=== PATIENT | female | born 1975 | race Two or more races ===

== ENCOUNTER 2020-01-24 18:13 | Inpatient (IN) | payer MEDICAID ==
[~2020-01-24] VITALS: Ht 157.5 cm; Wt 81.0 kg
[2020-01-24 18:57] LABS: Basophils # (auto) 0.1 10 ^3/uL (0-0.2); Eosinophils # (auto) 0.1 10 ^3/uL (0-0.8); Lymphocytes # (auto) 1.2 10 ^3/uL (0.4-5.4); Mean Corpuscular Hgb Conc. 32.2 g/dL (32.0-36.0); Monocytes # (auto) 1.5 10 ^3/uL (0-1.3); Nucleated Red Blood Cells % 0.1 %; White Blood Cell 12.4 10^3/uL (4.4-10.8)
[2020-01-24 18:58] LABS: Basophils % (auto) 0.6 % (0.0-2.0); Eosinophils % (auto) 0.9 % (0.0-7.0); Hematocrit 29.7 % (36.0-46.0); Hemoglobin 9.6 g/dL (12.2-16.2); Lymphocytes % (auto) 9.4 % (10.0-50.0); Mean Corpuscular Hemoglobin 23.8 pg (28.0-32.0); Mean Corpuscular Volume 73.8 fL (80.0-100.0); Neutrophils # (auto) 9.6 10 ^3/uL (1.6-8.6); Neutrophils % (auto) 77.1 % (37.0-80.0); Platelet Count (auto) 277 10^3/uL (140-450); Red Blood Cells 4.03 10^6/uL (4.0-5.20); Red Cell Distribution Width 17.4 % (11.8-14.3)
[2020-01-24 19:00] LABS: Urine Amorphous Crystal FEW /hpf (None Seen); Urine Bacteria NONE SEEN /hpf (None Seen); Urine Blood 2+ /uL (Negative); Urine Mucus FEW (None Seen); Urine Specific Gravity 1.019 (1.001-1.035); Urine WBC 82 /hpf (0 - 5); Urine WBC Clumps PRESENT /hpf (None Seen)
[2020-01-24 19:10] LABS: Albumin 2.3 g/dL (3.4-5.0); BUN/Creatinine Ratio 11.3; Calcium 7.8 mg/dL (8.5-10.1)
[2020-01-24 19:15] LABS: Bilirubin, Total 0.4 mg/dL (0.2-1.0); Total Protein 7.3 g/dL (6.4-8.2)
[2020-01-24 20:01] LABS: Potassium 2.7 mmol/L (3.5-5.1)
[2020-01-24] MEDS ORDERED: POTASSIUM EFFERVESENT TAB 25 MEQ PO ONE ×2 (21:00)
[2020-01-24] MEDS ORDERED: PANTOPRAZOLE 40 MG/10 ML VIAL INJ IV ONE (21:15)
[2020-01-24] MEDS ORDERED: SODIUM CHLORIDE 0.9% 1,000 ML IV ONE (21:15)
[2020-01-24] MEDS ORDERED: cefTRIAXone 1GM/50ML D5W 50 ML IV ONE (21:15)
[2020-01-24] MEDS ORDERED: ONDANSETRON HCL 4 MG/2 ML VIAL IV ONE (21:15)
[2020-01-24] MEDS ORDERED: HYDROcodone-ACET 5/325MG TAB PO ONE (21:30)
[2020-01-24] MEDS ORDERED: CIPROFLOXACIN 400MG/200ML 200 ML IV ONE (21:30)
[2020-01-24] MEDS ORDERED: MORPHINE SULF INJ 2 MG/ML SYRINGE 1ML IV ONE (22:00)
[2020-01-24 23:20] LABS: Amphetamine Screen, Urine POSITIVE (NEGATIVE); Barbiturate Scree,Urine NEGATIVE (NEGATIVE); Benzodiazephine Screen, Urine NEGATIVE (NEGATIVE); Cannabinoid Screen, Urine NEGATIVE (NEGATIVE); Cocaine Screen, Urine NEGATIVE (NEGATIVE); Opiate Scree,Urine NEGATIVE (NEGATIVE); Phencyclidine Screen, Urine NEGATIVE (NEGATIVE)
[2020-01-24 23:25] LABS: Alcohol, Urine < 3.0 mg/dL (0-10)
[2020-01-25 00:15] LABS: Alanine Aminotransferase 13 U/L (13-56); Albumin 1.8 g/dL (3.4-5.0); Anion Gap 7 (5-15); Aspartate Aminotransferase 12 U/L (15-37); BUN/Creatinine Ratio 11.3; Blood Urea Nitrogen 17 mg/dL (7-18); Calcium 7.1 mg/dL (8.5-10.1); Carbon Dioxide 24 mmol/L (21-32); Chloride 103 mmol/L (98-107); GFR African American 49 mL/min; GFR Non-African American 40 mL/min; Glucose 107 mg/dL (74-106); Potassium 3.4 mmol/L (3.5-5.1); Sodium 134 mmol/L (136-145)
[2020-01-25] MEDS ORDERED: ONDANSETRON HCL 4 MG/2 ML VIAL IV PRN (00:15)
[2020-01-25] MEDS ORDERED: HYDROcodone-ACET 5/325MG TAB PO PRN (00:15)
[2020-01-25] MEDS ORDERED: TEMAZEPAM 15 MG CAP PO PRN (00:15)
[2020-01-25] MEDS ORDERED: ACETAMINOPHEN 325 MG TAB PO PRN (00:15)
[2020-01-25 00:20] LABS: Alkaline Phosphatase 160 U/L (45-117); Bilirubin, Total 0.3 mg/dL (0.2-1.0)
[2020-01-25 04:54] VITALS: BP 94/51
[2020-01-25 09:00] VITALS: BP 94/57
[2020-01-25] MEDS: FAMOTIDINE 20 MG TAB PO SCH ×2 (09:24→22:02)
[2020-01-25] MEDS: cefTRIAXone 1GM/50ML D5W 50 ML IV SCH (09:25)
[2020-01-25 12:32] LABS: BUN/Creatinine Ratio 11.5; Calcium 7.9 mg/dL (8.5-10.1); Potassium 3.4 mmol/L (3.5-5.1)
[2020-01-25 13:00] VITALS: BP 105/61
[2020-01-25 17:00] VITALS: BP 123/73
--- NOTE | 2020-01-25 17:53 | NUR ---
FEVER TEMP 100.9, WILL GIVE TYLENOL ORDERED.
[2020-01-25 21:30] VITALS: BP 131/70
[2020-01-26 04:57] VITALS: BP 143/69
[2020-01-26 06:19] LABS: Hematocrit 26.3 % (36.0-46.0); Hemoglobin 8.8 g/dL (12.2-16.2); Mean Corpuscular Hemoglobin 24.6 pg (28.0-32.0); Mean Corpuscular Hgb Conc. 33.3 g/dL (32.0-36.0); Mean Corpuscular Volume 73.8 fL (80.0-100.0); Platelet Count (auto) 267 10^3/uL (140-450); Red Blood Cells 3.56 10^6/uL (4.0-5.20); Red Cell Distribution Width 17.5 % (11.8-14.3); White Blood Cell 8.3 10^3/uL (4.4-10.8)
[2020-01-26 06:23] LABS: Basophils % (manual) 0 (0.0-2.0); Blast Cells 0; Eosinophils % (manual) 0 (0-7); Promyelocytes % 0; Reactive Lymphocytes 0
[2020-01-26 06:27] LABS: Potassium 3.5 mmol/L (3.5-5.1)
[2020-01-26 06:32] LABS: BUN/Creatinine Ratio 15.5; Calcium 7.9 mg/dL (8.5-10.1)
[2020-01-26 07:44] LABS: Band Neutrophils % (manual) 9; Lymphocytes % (manual) 24 (10.0-50.0); Metamyelocytes % 1; Monocytes % (manual) 7 (0-12); Myelocytes % 1
[2020-01-26 08:00] VITALS: BP 131/63
[2020-01-26 09:00] VITALS: BP 131/63
[2020-01-26] MEDS ORDERED: CIPR-173 PO (11:04)
[2020-01-26] MEDS: FAMOTIDINE 20 MG TAB PO SCH (11:35)
[2020-01-26] MEDS: cefTRIAXone 1GM/50ML D5W 50 ML IV SCH (11:35)
[2020-01-26 12:38] VITALS: BP 111/65
== END 2020-01-26 14:15 | disposition home or self-care (01) | DRG 720 ==
LOC: ER 18:13 → WEST WING 18:14
PROVIDERS: ADMIT Nurse Practitioner; ATTEND Internal Medicine Pulmonary Disease
DX: A41.9 Sepsis, unspecified organism (principal); N13.6 Pyonephrosis; D64.9 Anemia, unspecified; E87.6 Hypokalemia; R16.2 Hepatomegaly with splenomegaly, not elsewhere classified; F15.10 Other stimulant abuse, uncomplicated; Z98.51 Tubal ligation status
CPT/HCPCS: 36415; 74176; 80048; 80053; 80307; 81001; 84484; 85007; 85025; 85027; 87086; 96365; 96367; 96375; C9113; G0378; J0696; J2405

== ENCOUNTER 2020-05-18 13:37 | Emergency (ER) | payer SELFPAY ==
[~2020-05-18 13:37] MED LIST: CIPR-173 PO
[2020-05-18] MEDS ORDERED: cefTRIAXone SOD 1,000 MG VL IM ONE (15:15)
== END 2020-05-18 17:07 | disposition home or self-care (01) ==
LOC: ER 13:37
DX: U07.1 COVID-19 (principal); J18.9 Pneumonia, unspecified organism; J12.89 Other viral pneumonia; J45.909 Unspecified asthma, uncomplicated
CPT/HCPCS: 36415; 71045; 87426; 96372; 99284; J0696

== ENCOUNTER 2020-07-08 23:17 | Emergency (ER) | payer MEDICAID, SELFPAY ==
[~2020-07-08] VITALS: Ht 154.9 cm; Wt 72.6 kg
[2020-07-09 00:32] VITALS: BP 133/91
[2020-07-09] MEDS ORDERED: ACETAMINOPHEN/CODEINE#3 (300/30mg) TAB PO ONE (03:00)
[2020-07-09] MEDS ORDERED: ONDANSETRON ODT 4 MG TAB PO ONE (03:00)
== END 2020-07-09 03:38 | disposition home or self-care (01) ==
LOC: ER 23:19
DX: S16.1XXA Strain of muscle, fascia and tendon at neck level, initial encounter (principal); S30.1XXA Contusion of abdominal wall, initial encounter; S40.021A Contusion of right upper arm, initial encounter; X58.XXXA Exposure to other specified factors, initial encounter; Y93.89 Activity, other specified; Y92.89 Other specified places as the place of occurrence of the external cause; Y99.8 Other external cause status
CPT/HCPCS: 71045; 72125; 99284; Q0162

== ENCOUNTER 2021-01-25 03:32 | Emergency (ER) | payer SELFPAY ==
[~2021-01-25] VITALS: Ht 157.5 cm; Wt 65.8 kg
[2021-01-25 06:03] LABS: Eosinophils # (auto) 0.1 10 ^3/uL (0-0.8); Hemoglobin 9.8 g/dL (12.2-16.2); Monocytes # (auto) 1.5 10 ^3/uL (0-1.3); White Blood Cell 15.7 10^3/uL (4.4-10.8)
[2021-01-25 06:06] LABS: Basophils # (auto) 0.2 10 ^3/uL (0-0.2); Eosinophils % (auto) 0.5 % (0.0-7.0); Hematocrit 31.2 % (36.0-46.0); Lymphocytes # (auto) 3.1 10 ^3/uL (0.4-5.4); Lymphocytes % (auto) 19.5 % (10.0-50.0); Mean Corpuscular Hemoglobin 22.6 pg (28.0-32.0); Mean Corpuscular Hgb Conc. 31.5 g/dL (32.0-36.0); Mean Corpuscular Volume 71.8 fL (80.0-100.0); Monocytes % (auto) 9.7 % (0.0-12.0); Neutrophils # (auto) 10.9 10 ^3/uL (1.6-8.6); Neutrophils % (auto) 69.3 % (37.0-80.0); Red Blood Cells 4.35 10^6/uL (4.0-5.20); Red Cell Distribution Width 17.8 % (11.8-14.3)
[2021-01-25 06:23] LABS: Potassium 3.6 mmol/L (3.5-5.1)
[2021-01-25 06:29] LABS: Albumin 3.2 g/dL (3.4-5.0); BUN/Creatinine Ratio 11.3; Calcium 9.1 mg/dL (8.5-10.1)
[2021-01-25 06:31] LABS: Bilirubin, Total 0.3 mg/dL (0.2-1.0); Total Protein 8.8 g/dL (6.4-8.2)
[2021-01-25 06:43] LABS: Urine Bacteria MANY /hpf (None Seen); Urine Blood 1+ /uL (Negative); Urine Hyaline Cast MANY /lpf (0 - 2); Urine Mucus FEW (None Seen); Urine Specific Gravity 1.027 (1.001-1.035); Urine WBC 261 /hpf (0 - 5); Urine WBC Clumps PRESENT /hpf (None Seen)
[2021-01-25 08:44] VITALS: BP 120/68
[2021-01-25] MEDS ORDERED: LIDOCAINE 1% HCL (LOCAL ANESTH.) INJ 20ML MDV ONE (08:52)
[2021-01-25] MEDS ORDERED: cefTRIAXone SOD 1,000 MG VL IM ONE (11:30)
== END 2021-01-25 12:11 | disposition home or self-care (01) ==
LOC: ER 03:32
DX: N39.0 Urinary tract infection, site not specified (principal); J45.909 Unspecified asthma, uncomplicated; Z79.2 Long term (current) use of antibiotics
CPT/HCPCS: 36415; 74176; 80053; 81001; 81025; 83690; 85025; 96372; 99284; J0696; J2001

== ENCOUNTER 2021-11-18 19:15 | Emergency (ER) | payer MEDICAID ==
[~2021-11-18] VITALS: Ht 154.9 cm; Wt 72.6 kg
[2021-11-18] MEDS ORDERED: MORPHINE SULFATE 4 MG/ML SYR/VIAL IM ONE (21:15)
[2021-11-18] MEDS ORDERED: ONDANSETRON HCL 4 MG/2 ML VIAL IV ONE (23:00)
[2021-11-18] MEDS ORDERED: MORPHINE SULFATE 4 MG/ML SYR/VIAL IV ONE (23:00)
[2021-11-19 01:52] VITALS: BP 116/68
== END 2021-11-19 01:52 | disposition home or self-care (01) ==
LOC: ER 19:15
DX: S02.32XA Fracture of orbital floor, left side, initial encounter for closed fracture (principal); S02.40DA Maxillary fracture, left side, initial encounter for closed fracture; M54.2 Cervicalgia; Y04.2XXA Assault by strike against or bumped into by another person, initial encounter; Y93.89 Activity, other specified; Y92.89 Other specified places as the place of occurrence of the external cause; Y99.8 Other external cause status
CPT/HCPCS: 70450; 70486; 71045; 96374; 96375; 99285; J2270; J2405

== ENCOUNTER 2021-12-04 01:21 | Emergency (ER) | payer MEDICAID ==
[~2021-12-04] VITALS: Ht 154.9 cm; Wt 67.6 kg
[2021-12-04 01:21] VITALS: BP 149/87
[2021-12-04] MEDS ORDERED: LIDOCAINE 1% HCL (LOCAL ANESTH.) INJ 20ML MDV ID ONE (04:15)
[2021-12-04] MEDS ORDERED: ONDANSETRON ODT 4 MG TAB PO ONE (05:30)
[2021-12-04] MEDS ORDERED: HYDROcodone-ACET 10/325MG TAB PO ONE (05:30)
[2021-12-04] MEDS ORDERED: HYDR-4902 PO (05:34)
== END 2021-12-04 06:04 | disposition home or self-care (01) ==
LOC: ER 01:21
DX: S52.502A Unspecified fracture of the lower end of left radius, initial encounter for closed fracture (principal); J45.909 Unspecified asthma, uncomplicated; Y04.2XXA Assault by strike against or bumped into by another person, initial encounter; Y93.89 Activity, other specified; Y92.89 Other specified places as the place of occurrence of the external cause; Y99.8 Other external cause status
CPT/HCPCS: 25605; 73030; 73080; 73090; 73100; 73110; 99284; Q0162; 29125

== ENCOUNTER 2024-04-09 02:59 | Emergency (ER) | payer MEDICAID ==
[~2024-04-09] VITALS: Ht 154.9 cm; Wt 84.4 kg
[~2024-04-09 02:59] MED LIST changes: +HYDR-4902 PO
[2024-04-09] MEDS ORDERED: METH4PAK PO (04:00)
[2024-04-09] MEDS ORDERED: AUG875T PO (04:00)
[2024-04-09] MEDS: DexAMETHasone SOD PHOS 10MG/1ML VIAL INJ IM ONE (04:03)
--- NOTE | 2024-04-09 04:04 | ED.PDOC ---
Eye-HPI HPI Comments THIS IS A 48-YEAR-OLD FEMALE PATIENT CHIEF COMPLAINT SORE THROAT. PATIENT STATES SYMPTOMS STARTED AROUND 3 DAYS AGO. RELATED SYMPTOMS OF DIFFICULTY SWALLOWING THROAT SWELLING AND HOARSE VOICE. PATIENT DENIES DIFFICULTY BREATHING, SHORTNESS OF BREATH, CHEST PAIN, NAUSEA OR VOMITING. Chief Complaint: Sore Throat Time Seen by MD: 03:09 Primary Care Provider: NONE Reviewed Notes: Nurses Notes, Medications, Allergies Allergies: Coded Allergies: NO KNOWN ALLERGIES (Unverified , 04/03/14) Home Meds Active Scripts Methylprednisolone (Medrol Dosepak) 4 Mg Markus, 4 MG PO UD for 6 Days, #21 TAB UAD Prov:LEA WINTER CADD TECHNICIAN 04/09/24 Amoxicillin & Pot Clavulanate (AUGMENTIN TABLET) 875 Mg Tb, 875 MG PO BID for 10 Days, #20 TAB Prov:LEA WINTER [facility] 04/09/24 Hydrocodone-Acetaminophen (Hydrocodone Bitartrate/AC 5-325 mg) 1 Tab Tab, 1 TAB PO Q4HPRN PRN, #20 TAB 0 Refills Prov:JÚNIOR DUKE 12/04/21 Ciprofloxacin Hcl (Cipro) 500 Mg Tab, 1 TAB PO BID for 7 Days, #14 TAB Prov:PRISCA HARRINGTON MD 01/26/20 Mode of Arrival: Ambulatory Past Medical History PAST MEDICAL HISTORY: Anemia, Asthma Surgical History: Denies all surgeries 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: 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 all TERRAZZO FINISHER HELPER Hx Family History Family History: Reviewed,noncontributory to illness Social History Smoker: Non-Smoker Alcohol: Denies ETOH Use Drugs: Denies Drug Use Lives In: Home Constitutional: reports: fever; denies: chills, diaphoresis, fatigue, malaise, sweats, weakness, others EENTM: reports: throat pain, throat swelling; denies: blurred vision, double vision, ear bleeding, ear discharge, ear drainage, ear pain, ear ringing, eye pain, eye redness, hearing loss, mouth pain, mouth swelling, nasal discharge, nose bleeding, nose congestion, nose pain, photophobia, tearing, voice changes, others Respiratory: denies: cough, hemoptysis, orthopnea, SOB at rest, shortness of breath, SOB with excertion, stridor, wheezing, others Cardiovascular: denies: chest pain, dizzy spells, diaphoresis, Dyspnea on exertion, edema, irregular heart beat, left arm pain, lightheadedness, palpita tions, PND, syncope, others Gastrointestinal: denies: abdomen distended, abdominal pain, blood streaked mata wels, constipated, diarrhea, dysphagia, difficulty swallowing, hematemesis, melena, nausea, poor appetite, poor fluid intake, rectal bleeding, rectal pain, vomiting, others Genitourinary: denies: abnormal vagina bleeding, burning, dyspareunia, dysuria, flank pain, frequency, hematuria, incontinence, pain, , vagina discharge, urgency, others Neurological: denies: dizziness, fainting, headache, left sided numbness, left sided weakness, numbness, paresthesia, pre-existing deficit, right sided numbness, right sided weakness, seizure, speech problems, tingling, tremors, weakness, others Musculoskeletal: denies: back pain, gout, joint pain, joint swelling, muscle pain, muscle stiffness, neck pain, others Integumetry: denies: bruises, change in color, change in hair/nails, dryness, laceration, lesions, lumps, rash, wounds, others Allergic/Immunocompromised: denies: Difficulty Healing, Frequent Infections, Hives, Itching, others Hematologic/Lymphatic: denies: anemia, blood clots, easy bleeding, easy bruis ing, swollen glands, others Endocrine: denies: excessive hunger, excessive sweating, excessive thirst, exc essive urination, flushing, intolerance to cold, intolerance to heat, unexplained weight gain, unexplained weight loss, others Psychiatric: denies: anxiety, bipolar disorder, depression, hopeless, panic disorder, schizophrenia, sleepless, suicidal, others Physical Exam General Appearance: No Apparent Distress, Normal HEENT: Pharyngeal Erythema, TMs Normal, Tonsillar Exudate (TONSILS GRADE 4 WITH EXUDATE) Neck: Full Range of Motion, Non-Tender Respiratory: Lungs Clear, No Accessory Muscle Use, No Respiratory Distress, Normal Breath Sounds Cardiovascular: No Murmur, No Gallop, Normal Peripheral Pulses, Regular Rate/Rhythm Breast Exam: Deferred Gastrointestinal: Non Tender, Soft Genitalia: Deferred Pelvic: Deferred Rectal: Deferred Extremities: Normal capillary refill, Normal inspection, Normal range of motion, Non-tender Musculoskeletal : Apperance: Normal Neurologic: Alert, taxicab driver II-XII nml as Tested, No Motor Deficits, Normal Affect, Normal Mood, No Sensory Deficits Cerebellar Function: Normal Reflexes: Normal Skin: Dry, Normal Color, Warm Lymphatic: Cervical Adenopathy (L), Cervical Adenopathy (R), No Adenopathy Was a procedure done? Was a procedure done?: No EENT DIFF Eye: N/A Sore Throat: Streptococcal, Viral Pharyngitis X-Ray, Labs, Meds, VS Vital Signs Date Time Temp Pulse Resp B/P (MAP) Pulse Ox O2 Delivery O2 Flow Rate FiO2 04/09/24 04:06 84 20 97 Room Air 04/09/24 04:06 99.0 84 20 144/76 (98) 97 99.0 04/09/24 03:29 99.0 84 20 144/78 (100) 97 Current Medications Medications (Trade) Dose Ordered Sig/Mallory Route Start Time Stop Time Status Last Admin Dexamethasone Sodium Phosphate (Decadron Injection) 10 mg ONCE ONCE IM 04/09/24 04:00 04/09/24 04:01 DC 04/09/24 04:03 X-Ray, Labs, Meds, VS Comment LIKELY BACTERIAL TONSILLITIS. PATIENT GIVEN DECADRON 10 MG IM FOR THE SWELLING AND PAIN. WE WILL START PATIENT ON AUGMENTIN TWICE DAILY TIMES 10 DAYS. ADVISED TO TAKE WITH MILK TAKE A DAILY PROBIOTIC OR YOGURT. ADVISED TO FOLLOW UP WITH HER PCP IN 2-3 DAYS NECESSARY. ADVISED TO REST INCREASE P.O. FLUIDS WITH ELECTROLYTES CONSIDER POPSICLES FOR THE SWELLING. ADVISED TO RETURN TO THE ER FOR ANY CONCERNING SYMPTOMS. PATIENT AGREES WITH DISCHARGE INSTRUCTIONS Time of 1ST Reevaluation: 03:55 Reevaluation 1ST: Improved Patient Education/Counseling: Diagnosis, Treatment, Prognosis, Need For Follow Up Family Education/Counseling: No Family Present Departure 1 Departure Time of Disposition: 03:59 Impression: Primary Impression: Tonsillitis with exudate Disposition: HOME / SELF CARE / HOMELESS Condition: Stable e-Prescriptions Methylprednisolone (Medrol Dosepak) 4 Mg Markus 4 MG PO UD for 6 Days, #21 TAB UAD Prov: LEA WINTERP 04/09/24 Amoxicillin & Pot Clavulanate (AUGMENTIN TABLET) 875 Mg Tb 875 MG PO BID for 10 Days, #20 TAB Prov: LEA WINTER [facility] 04/09/24 Discharged With: Self Critical Care Note Critical Care Time?: No Stability Stability form required: LEA Ye CADD TECHNICIAN Apr 09, 2024 04:04
[2024-04-09 04:06] VITALS: BP 144/76; PULSE 84; RESP 20; TEMP 99; O2SAT 97
== END 2024-04-09 04:12 | disposition home or self-care (01) ==
LOC: ER 02:59
DX: J03.90 Acute tonsillitis, unspecified (principal); J45.909 Unspecified asthma, uncomplicated
CPT/HCPCS: 96372; 99283; J1100

== ENCOUNTER 2025-04-21 15:44 | Emergency (ER) | payer MEDICAID ==
[~2025-04-21] VITALS: Ht 154.9 cm; Wt 76.5 kg
[~2025-04-21 15:44] MED LIST changes: +AUG875T PO; +METH4PAK PO
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
[2025-04-21] MEDS ORDERED: IBU600T PO (17:59)
--- NOTE | 2025-04-21 19:19 | DVH ---
CLINICAL INDICATION: pain TECHNIQUE: 5 radiographic views of the bilateral ribs were obtained. Comparison: None FINDINGS/IMPRESSION: There are no fractures. No pleural effusions No pneumothorax
[2025-04-21 20:01] VITALS: BP 146/75; PULSE 77; RESP 15; TEMP 98.1; O2SAT 100
== END 2025-04-21 20:01 | disposition home or self-care (01) ==
LOC: ER 15:44
DX: T14.8XXA Other injury of unspecified body region, initial encounter (principal); R07.89 Other chest pain; J45.909 Unspecified asthma, uncomplicated; X58.XXXA Exposure to other specified factors, initial encounter; Y93.89 Activity, other specified; Y92.89 Other specified places as the place of occurrence of the external cause; Y99.8 Other external cause status
CPT/HCPCS: 71111